=== PATIENT | female | born 1935 | race Caucasian/White ===

== ENCOUNTER 2018-04-03 13:52 | Emergency (ER) | payer MEDICARE ==
[~2018-04-03] VITALS: Ht 160 cm; Wt 50.0 kg
[~2018-04-03 13:52] MED LIST: ALEN70TA48 PO; LANS30CA37 PO; LEVO75TA50 PO; POTA20TA19 PO; calcium PO
[2018-04-03] MEDS ORDERED: traMADol 50MG tablet PO ONE (15:05)
[2018-04-03 15:12] LABS: BASOPHILS % (AUTO) 0.4 % (0-1); EOSINOPHILS # (AUTO) 0.1 X10'3 (0-0.9); EOSINOPHILS % (AUTO) 1.3 % (0-6); HEMATOCRIT 39.4 % (35.0-45.0); HEMOGLOBIN 13.4 g/dl (12.0-16.0); LYMPHOCYTES % (AUTO) 19.9 % (21-51); MEAN CORPUSCULAR HEMOGLOBIN 35.5 PG (27.0-31.0); MEAN CORPUSCULAR VOLUME 104.2 FL (78-98); MEAN PLATELET VOLUME 7.1 FL (7.4-10.4); MONOCYTES # (AUTO) 0.7 X10'3 (0-0.9); NEUTROPHILS # (AUTO) 3.3 X10'3 (1.8-7.7); NEUTROPHILS % (AUTO) 64.4 % (42-75); PLATELET COUNT 430 X10'3 (140-440); RED BLOOD COUNT 3.78 X10'6 (4.20-5.60); RED CELL DISTRIBUTION WIDTH 14.5 % (11.5-14.5); WHITE BLOOD COUNT 5.1 X10'3 (4.5-11.0)
[2018-04-03 15:22] LABS: INR 1.1 INR; PARTIAL THROMBOPLASTIN TIME 29 SECONDS (22-32); PROTHROMBIN TIME 11.2 SECONDS (9.0-12.0)
[2018-04-03 15:26] LABS: ALANINE AMINOTRANSFERASE 26 U/L (12-78); ALBUMIN 2.9 G/DL (3.4-5.0); ALBUMIN/GLOBULIN RATIO 0.8 (1.1-1.5); ALKALINE PHOSPHATASE 95 IU/L (46-116); ANION GAP 6 (8-16); ASPARTATE AMINO TRANSFERASE 39 U/L (10-37); BILIRUBIN,TOTAL 0.7 MG/DL (0.1-1.0); BLOOD UREA NITROGEN 5 MG/DL (7-18); BUN/CREATININE RATIO 7.4 (6.6-38.0); CALCIUM 8.7 MG/DL (8.5-10.1); CHLORIDE 94 MMOL/L (99-107); CREATININE 0.68 MG/DL (0.40-0.90); GLUCOSE 156 MG/DL (70-104); SODIUM 131 MMOL/L (135-145); TOTAL CARBON DIOXIDE 31.1 MMOL/L (24-32); TOTAL PROTEIN 6.5 G/DL (6.4-8.2); eGFR 83 ML/MIN
[2018-04-03 15:28] LABS: POTASSIUM 2.9 MMOL/L (3.5-5.1)
[2018-04-03] MEDS ORDERED: potassium Cl oral solution 20 MEQ/15 ML PO ONE (15:40)
[2018-04-03] MEDS ORDERED: oxyCODONE IR 5mg (immed. release) tablet PO ONE (17:35)
[2018-04-03] MEDS ORDERED: OXYC-658 PO (18:37)
[2018-04-03 18:49] VITALS: BP 106/66
== END 2018-04-03 18:51 | disposition home or self-care (01) ==
LOC: ER 13:55
DX: S32.058A Other fracture of fifth lumbar vertebra, initial encounter for closed fracture (principal); E87.6 Hypokalemia; M81.0 Age-related osteoporosis without current pathological fracture; Z88.2 Allergy status to sulfonamides; Z79.899 Other long term (current) drug therapy; Z60.2 Problems related to living alone; W19.XXXA Unspecified fall, initial encounter; Y93.89 Activity, other specified; Y92.89 Other specified places as the place of occurrence of the external cause; Y99.9 Unspecified external cause status
CPT/HCPCS: 36415; 72100; 72190; 80053; 82140; 85025; 85610; 85730; 99285

== ENCOUNTER 2021-01-13 12:13 | Emergency (ER) | payer MEDICARE ==
[~2021-01-13] VITALS: Ht 154.9 cm; Wt 50.0 kg
[~2021-01-13 12:13] MED LIST changes: +ALEN70TA37 PO; -ALEN70TA48 PO
[2021-01-13 12:35] VITALS: BP 130/54
== END 2021-01-13 19:51 | disposition left against medical advice (07) ==
LOC: ER 12:14
DX: M79.661 Pain in right lower leg (principal); Z53.21 Procedure and treatment not carried out due to patient leaving prior to being seen by health care provider

== ENCOUNTER 2021-01-29 06:14 | Emergency (ER) | payer MEDICARE ==
[~2021-01-29] VITALS: Ht 154.9 cm; Wt 47.7 kg
[2021-01-29] MEDS ORDERED: morphine 10mg/ml inj. IV ONE (07:05)
[2021-01-29] MEDS ORDERED: morphine 4 MG/ML inj SYRINge IV ONE (07:10)
[2021-01-29 08:47] LABS: CLARITY,URINE CLEAR (Clear); COLOR,URINE STRAW (Yellow); GLUCOSE, URINE NEGATIVE (Neg); KETONES,URINE 40 mg/dl (Neg); LEUKOCYTE ESTERASE ,URINE NEGATIVE (Neg); NITRITES, URINE NEGATIVE (Neg); OCCULT BLOOD,URINE TRACE-INTACT (Neg); PH,URINE 6.5 (4.8-8.0); PROTEIN,URINE NEGATIVE (Neg); UROBILINOGEN,URINE 0.2 E.U/dL (0.2-1.0)
[2021-01-29 08:49] LABS: UA COLLECTION TYPE CLN CATCH MIDSTREAM
[2021-01-29 08:58] LABS: RBC,URINE 0-2 /HPF (0-2)
[2021-01-29 08:59] LABS: BACTERIA,URINE FEW /HPF (Neg); MUCUS STRANDS NONE SEEN /LPF (Neg); SQUAMOUS EPITHELIAL CELL,UR FEW /LPF (FEW); WBC,URINE 0-4 /HPF (0-4)
[2021-01-29] MEDS ORDERED: HYDR-3965 PO (09:21)
--- NOTE | 2021-01-29 09:26 | NUR ---
Gave Morphine IM, per Dr. Cardona's verbal order to switch from IV to IM.
[2021-01-29 09:36] VITALS: BP 123/78
== END 2021-01-29 09:32 | disposition home or self-care (01) ==
LOC: ER 06:14
DX: G89.29 Other chronic pain (principal); M54.9 Dorsalgia, unspecified; M25.551 Pain in right hip; M25.552 Pain in left hip; M81.0 Age-related osteoporosis without current pathological fracture; E07.9 Disorder of thyroid, unspecified; Z72.89 Other problems related to lifestyle; Z88.2 Allergy status to sulfonamides; Z91.012 Allergy to eggs; Z79.899 Other long term (current) drug therapy
CPT/HCPCS: 72100; 81001; 96374; 99284; J2270

== ENCOUNTER 2022-08-22 10:09 | Emergency (ER) | payer MEDICARE ==
[~2022-08-22] VITALS: Ht 157.5 cm; Wt 44.0 kg
[~2022-08-22 10:09] MED LIST changes: +APIX5TAB3 PO; +CALC600T22 PO; +DILT120T3 PO; +HYDR-3964 PO; -POTA20TA19 PO; +UMEC62.5 INH; -calcium PO
[2022-08-22] MEDS ORDERED: ondansetron 4mg rapidly disintigrating tab PO ONE (11:00)
[2022-08-22] MEDS ORDERED: HYDROcodone/acetaminophen 5mg/325mg tablet PO ONE (11:00)
[2022-08-22] MEDS ORDERED: ketorolac trometh. 30mg/ml inj. IM ONE (11:00)
[2022-08-22] MEDS ORDERED: acetaminophen 325mg tablet PO ONE (11:00)
[2022-08-22] MEDS ORDERED: ONDA4TAB12 PO (12:06)
[2022-08-22] MEDS ORDERED: HYDR-3965 PO (12:06)
[2022-08-22 12:19] VITALS: BP 113/42
== END 2022-08-22 12:21 | disposition home or self-care (01) ==
LOC: ER 10:09
DX: M54.89 Other dorsalgia (principal); Z88.2 Allergy status to sulfonamides; Z79.899 Other long term (current) drug therapy
CPT/HCPCS: 72074; 96372; 99284; J1885